=== PATIENT | female | born 1945 | race Caucasian/White ===

== ENCOUNTER → 2016-07-13 | Outpatient (CLI) | payer OTHER | LOC: US 11:00 | DX: R09.89 Other specified symptoms and signs involving the circulatory and respiratory systems (principal); I65.23 Occlusion and stenosis of bilateral carotid arteries | CPT/HCPCS: 93880 ==

== ENCOUNTER → 2016-07-26 | Outpatient (CLI) | payer OTHER | LOC: RAD 13:10 | DX: R05 Cough (principal) | CPT/HCPCS: 71020 ==

== ENCOUNTER → 2020-05-11 | Outpatient (CLI) | payer OTHER | LOC: KOH-I 10:49 | DX: M25.552 Pain in left hip (principal); M16.12 Unilateral primary osteoarthritis, left hip; M47.816 Spondylosis without myelopathy or radiculopathy, lumbar region; M53.3 Sacrococcygeal disorders, not elsewhere classified; M25.78 Osteophyte, vertebrae | CPT/HCPCS: 72170; 73502 ==

== ENCOUNTER → 2021-02-09 | Outpatient (CLI) | payer OTHER | LOC: KOH-I 10:46 | DX: R60.0 Localized edema (principal) | CPT/HCPCS: 93971 ==

== ENCOUNTER → 2021-09-05 | Outpatient (CLI) | payer OTHER | LOC: RAD 17:33 | DX: M50.30 Other cervical disc degeneration, unspecified cervical region (principal) | CPT/HCPCS: 72040 ==